=== PATIENT | female | born 1985 | race Caucasian/White ===

== ENCOUNTER 2017-02-06 12:41 | Emergency (ER) | payer MEDICAID ==
[~2017-02-06] VITALS: Ht 170.2 cm; Wt 54.1 kg
[~2017-02-06 12:41] MED LIST: ALBUTEROL-200 PUFFS/ IH; AMOXICILLIN875 MG PO; AUGMENTIN 875-1 EACH PO; CLINDAMYCIN HC300 MG PO; DARVOCET-N 1001 EACH PO; FERROUS SULFAT325 M2 PO; FIORICET 325 MG1 TAB PO; FLAGYL500 M1 PO; IBUPROFEN800 MG PO; IRON TABLETS325 MG PO; MOTRIN 400MG.400 MG PO; MOTRIN600 MG PO; MULTI VITAMINS1 TAB PO; NICOTINE T21 MG/24 H TD; ULTRAM50 MG PO
--- OUTSIDE RECORDS SUMMARY | 2017-02-06 12:48 | External Medical Summary Rpt | CCD ---
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 Role Phone [facility] Unavailable Unavailable MEDICAL GROUP, [facility] Unavailable Unavailable ANESTHESIA, [facility] ANESTHESIA [facility] & Unavailable Unavailable DUBILIER, [facility] Unavailable Unavailable ASSOCIATES, [facility] Unavailable Unavailable INC, [facility] Unavailable Unavailable HOSPITAL P, [facility], Unavailable Unavailable [facility], Unavailable Unavailable [facility] Unavailable Unavailable [facility], [facility] Jv Matute MD, Unavailable Unavailable Jv Matute MD [facility], Unavailable Unavailable [facility] [place] [facility], [facility] Unavailable Unavailable EQUIPME, [facility] Purpose Continuity of Care Document - 12-04-2011 through 2016 Problems Code Diagnosis DOS Provider Status J00 ACUTE 10-13-2016 [facility] NASOPHARYNG PHYSICIAN ITIS COMMON GROUP COLD K8010 CALCULUS GB 09-22-2016 [facility] W/CHRONIC MICHEAL & CHOLECYST DUBILIER W/O OBSTRUCTION K8050 CALCULUS BD 09-22-2016 [facility] W/O [facility] CHOLANGITIS ANESTHESIA /CHOLECYST W/O OBST K8510 BILIARY 09-22-2016 [facility] ACUTE [facility] PANCREATITI ANESTHESIA S W/O NECROSIS INFECT K8590 ACUTE 09-22-2016 [facility] PANCREATITI HEALTH S WO MEDICAL NECROSIS/IN GROUP FECTION UNSPEC K8020 CALCULUS GB 09-21-2016 [facility] CHOLECYSTIT ASSOC[facility]ATES IS W/O OBSTRUCTION R1013 EPIGASTRIC 09-21-2016 [facility] Z720 TOBACCO USE 09-21-2016 [facility] K8051 CALCULUS BD 09-20-2016 [facility] W/O [facility] P OR CHOLECYST W/OBST K8070 CALCULUS GB 09-20-2016 [facility] & BD W/O MEDICAL CHOLECYST IMAGING ASS W/O OBSTRUCTION K831 OBSTRUCTION 09-20-2016 [place] OF BILE PHYSICIANS, DUCT [facility] R079 CHEST PAIN 09-20-2016 [facility] UNSPECIFIED [facility] IM[facility]ING ASS R109 UNSPECIFIED 09-20-2016 [facility] ABDOMINAL [facility]ICAL PAIN [facility] R748 ABNORMAL 09-20-2016 [facility] LEVELS OF MEDICAL OTHER SERUM IMAGING ASS ENZYMES R7989 OTHER SPEC 09-20-2016 [place] ABNORMAL PHYSICIANS, FINDINGS [facility] BLOOD CHEMISTRY R945 ABNORMAL 09-20-2016 [place] RESULTS OF PHYSICIANS, LIVER [facility] FUNCTION STUDIES Z0189 ENCOUNTER 08-10-2016 [facility] SPECIFIED SPECIAL EXAMINATION S Z302 ENCOUNTER 08-10-2016 [facility] FOR PHYSICIANS STERILIZATI GROUP ON Z3009 ENCOUNTER 08-08-2016 [facility] OT GENERAL PHYSICIANS GROUP CISTERN ROOM WORKING SUPERVISOR&ADV ICE CONTRACEPT Z9851 TUBAL 08-08-2016 [facility] LIGATION PHYSICIANS STATUS GROUP K029 DENTAL 07-02-2016 [place] CARIES PHYSICIANS, UNSPECIFIED [facility] I03822 CELLULITIS 07-02-2016 [facility] OF [facility]ACE [facility] Z3040 ENCOUNTER 06-28-2016 [facility] SURVEILLANC GROUP E CONTRACEPTI VES UNS V84161 ENCOUNTER 06-28-2016 [facility] REMOVAL PHYSICIANS INTRAUTERIN GROUP E CONTRACEPT DEVICE K0500 ACUTE 06-27-2016 [facility] PLAQUE INC INDUCED R102 PELVIC AND 05-23-2016 [facility] PERINEAL PHYSICIANS PAIN GROUP Z7251 HIGH RISK 05-23-2016 [facility] HETEROSEXUA PHYSICIANS L BEHAVIOR GROUP H66568 ENCOUNTER 04-17-2016 [facility] INSERTION PHYSICIANS INTRAUTERIN GROUP E CONTRACEPT DEVC Z392 ENCOUNTER 01-11-2016 [facility] FOR [facility]OUTINE LLC FOLLOW-UP Z391 ENCNTR FOR 12-22-2015 [facility] MEDICAL LACTATING EQUIPME MOTHER [id number] L & D COMP 12-04-2015 [facility] CORD AROUND [facility] NECK W/O INC COMPRS NA/UNS O80 ENCOUNTER 12-04-2015 [facility] FOR PHYSICIANS FULL-TERM GROUP UNCOMPLICAT ED DELIVERY Z370 SINGLE LIVE 12-04-2015 [facility] PHYSICIANS GROUP Z3A39 39 WEEKS 12-04-2015 [facility] INC [id number] OLIGOHYDRAM 11-29-2015 [facility] NIOS THIRD PHYSICIANS TRIMESTER GROUP NA/UNS C61992 DRUG USE 11-29-2015 [facility] COMPLICATIN PHYSICIANS G GROUP UNS TRIMESTER D97001 DRUG USE 11-23-2015 [facility] COMPLICATIN PHYSICIANS G GROUP THIRD TRIMESTER Z3480 ENC 11-23-2015 [facility] SUPERVISION PHYSICIANS OT NORMAL GROUP PREG UNS TRIMESTER P29600 OTHER SPEC 11-21-2015 [facility] RELATED [facility] COND 3RD TRIMESTER Z3A37 37 WEEKS 11-21-2015 [facility] OF INC Z3493 ENC 11-15-2015 [facility]ICAL NORMAL IMAGING ASS UNS 3 TRIMESTER Z3A36 36 WEEKS 11-15-2015 [facility] OF IMAGING ASS O4703 FALSE LABOR 10-31-2015 [facility] BEFORE [facility] CMPLETE INC WEEKS GEST 3RD TRI O6003 10-31-2015 [facility] LABOR PHYSICIANS WITHOUT GROUP DELIVERY THIRD TRIMESTER Z3A34 34 WEEKS 10-31-2015 [facility] INC C10824 ABNORMAL 10-07-2015 [facility] GLUCOSE PHYSICIANS COMPLICATIN GROUP G Z3492 ENC 09-15-2015 [facility]PER[facility]ION MEDICAL NORMAL IMAGING ASS UNS 2 TRIMESTER Z3A26 26 WEEKS 09-15-2015 [facility] OF IMAGING ASS Z113 ENCOUNTER 08-29-2015 [facility] SCREEN [facility] INFECTIONS SEXL MODE TRANSMISSN Z3201 ENCOUNTER 08-29-2015 [facility] GROUP TEST RESULT POSITIVE Z3481 ENC 08-29-2015 [facility] SUPERVISION LLC OT NORMAL 1 TRIMESTER 305.1 305.1 09-17-2012 [place] TOBACCO USE [facility] 648.93 648.93 OT 09-17-2012 [facility] V70.5 V70.5 09-17-2012 [facility] EXAM-GROUP [facility] SURVEY F19.20 Other psychoactiv e substance dependence, uncomplicat ed F41.9 ANXIETY DISORDER, UNSPECIFIED K02.9 DENTAL CARIES, UNSPECIFIED K80.50 Calculus of bile duct without cholangitis or cholecystit is without obstruction K80.70 Calculus of gallbladder and bile duct without cholecystit is without obstruction K83.1 OBSTRUCTION OF BILE DUCT K85.10 Biliary acute pancreatiti s without necrosis or infection K85.90 Acute pancreatiti s without necrosis or infection, unspecified R74.8 ABNORMAL LEVELS OF OTHER SERUM ENZYMES R79.89 OTHER SPECIFIED ABNORMAL FINDINGS OF BLOOD CHEMISTRY Allergies, Adverse Reactions, Alerts Type Drug Allergy Adverse Reaction to Substance Substance Reaction Severity Codeine Unknown Unknown Guaifenesin Unknown Unknown Medications Na ND Rx Da Fi Fi Am Da Di Ph RX Ph St me C No te ll ll ou ys ag ar # ys at rm s nt no ma ic us Or Da si cy ia de te s n re d HY 00 06 07 [address] 40 -0 -0 .0 00 L- ti OC 60 9- 7- 00 02 MA ve OD 12 20 20 24 RT ON 40 17 17 06 -A 1 59 PH CE AR TA MA WV CY NO PH #5 91 7. 5- 32 5 AM 00 05 06 20 10 00 WA Ac OX 78 -0 -0 .0 00 L- ti -C 11 1- 2- 00 07 MA ve LA 85 20 20 48 RT V 22 17 17 53 87 0 61 PH 5- AR 12 MA 5 CY MG #5 TA 91 BL ET CL 63 05 06 40 10 00 WA Ac IN 30 -0 -0 .0 00 L- ti DA 40 1- 2- 00 07 MA ve MY 69 20 20 48 RT CI 30 17 17 53 N 1 60 PH HC AR L MA 30 CY 0 MG #5 91 CA PS UL E HY 00 05 06 6. [address] 40 -0 -0 00 00 L- ti OC 60 8- 2- 0 02 MA ve OD 12 20 20 24 RT ON 30 17 17 02 -A 1 36 PH CE AR TA MA WV CY NO PH #5 EN 91 5- 32 5 IB 68 05 06 6. 3 00 WA Ac UP 64 -0 -0 00 00 L- ti RO 50 8- 2- 0 07 MA ve FE 53 20 20 48 RT N 05 17 17 67 60 9 81 PH 0 AR MG MA CY TA BL #5 ET 91 ME 59 04 05 1. [address] 76 -2 -1 00 00 IN ti OX 24 7- 9- 0 00 IC ve YP 53 20 20 42 RO 70 17 17 94 PH GE [address] MA ER CY ON E 15 0 MG /M L AM 00 04 05 20 10 00 WA Ac OX 14 -2 -1 .0 00 L- ti IC 39 6- 9- 00 07 MA ve IL 95 20 20 48 RT LI 10 17 17 46 N 1 15 PH 87 AR 5 MA MG CY TA #5 BL 91 ET IB 68 04 05 20 5 00 WA Ac UP 64 -2 -1 .0 00 L- ti RO 50 6- 9- 00 07 MA ve FE 53 20 20 48 RT N 15 17 17 46 80 4 17 PH 0 AR MG MA CY TA BL #5 ET 91 NA 65 02 03 60 30 00 WA Ac PA 16 -1 -1 .0 00 L- ti OX 20 4- 0- 00 07 MA ve EN 19 20 20 47 RT 01 17 17 06 50 1 24 PH 0 AR MG MA CY TA BL #5 ET 91 ON 57 01 02 12 3 00 WA Ac DA 23 -0 -0 .0 00 L- ti NS 70 5- 3- 00 07 MA ve ET 07 20 20 46 RT RO 71 17 17 29 N 0 31 PH OD AR T MA 4 CY MG #5 TA 91 BL ET LO 00 01 02 30 30 00 WA Ac RA 78 -0 -0 .0 00 L- ti TA 15 5- 3- 00 08 MA ve DI 07 20 20 83 RT NE 70 17 17 75 1 82 PH 10 AR MA MG CY TA #5 BL 91 ET PI 11 08 0 No TO 11 -3 CI 11 0- Lo N 11 20 ng 30 13 13 er 3 UN Ac IT ti S/ ve LR 50 0M L IV LA [address] 40 -3 AT 97 0- Lo ED 95 20 ng 30 13 er RI 9 NG Ac ER ti S ve IN JE CT IO N W[place] 59 08 0 No SO 76 -3 PA 25 0- Lo OS 00 20 ng TO 80 13 er L 1 20 Ac 0 ti MC ve G TA BL ET MA 00 08 2 No PA 90 -3 P 41 0- Lo 32 98 20 ng 5 26 13 er MG 1 Ac TA ti BL ve ET Ib 62 08 2 No up 58 -3 ro 40 0- Lo fe 74 20 ng n 60 13 er 40 1 0M Ac G ti Ta ve bl et SE 67 08 2 No NO 61 -3 KO 80 0- Lo T- 31 20 ng S 00 13 er TA 1 BL Ac ET ti ve NI 00 08 0 No CO 06 -3 TI 75 0- Lo NE 12 20 ng 61 13 er 21 4 Ac MG ti /2 ve 4H R PA TC H AM 00 08 1 No PI 78 -3 CI 13 0- Lo LL 41 20 ng IN 39 13 er 2 2 Ac GM ti ve A- V AL SO 00 08 1 No DI 40 -3 UM 97 0- Lo 10 20 ng CH 16 13 er LO 7 RI Ac DE ti ve 0. 9% SO LN Vital Signs 10-31-2012 15:58 Name Value Interpretat Reference Comment ion Range Weight 139 [lb_av] Measured Weight 63.050 kg Measured 09-17-2012 00:49 Name Value Interpretat Reference Comment ion Range BP 76 mm[Hg] Diastolic BP Systolic 120 mm[Hg] Heart 82 /min Rate/Pulse O2% 97 % Respiratory 20 /min Rate Results Labs Lab Lab Date Result Refere Interp Status Commen Order Detail nces retati t Range on LPL SerPl-cCnc (09-22-2016 05:30) Lipase 104 U/L 6-51 complet SerPl-c 017 ed Cnc 05:30 Comp Metab 1998 Pnl SerPl (09-22-2016 05:30) Comment: National Kidney Foundation Guidelines Comment: Comment: Stage Description GFR Comment: 1 Normal or High 90+ Comment: 2 Mild decrease 60-89 Comment: 3 Moderate decrease 30-59 Comment: 4 Severe decrease 15-29 Comment: 5 Kidney failure <15 BUN 6 mg/dL 9-23 complet Bld-mCn 017 ed c 05:30 Anion 5.0 3.0-11. complet Gap3 017 mmol/L 0 ed SerPl-s 05:30 Cnc BUN/Cre 12.0 7.0-25. complet at 017 0 ed SerPl 05:30 Albumin 1.6 1.5-2.5 complet /Glob 017 g/dL ed SerPl 05:30 Globuli 2.0 complet n Ur 017 gm/dL ed Elph-mC 05:30 nc GFR/BSA 146 >60 complet .pred 017 mL/min/ ed SerPl 05:30 1.73 MDRD-Ar VRat Bilirub 07-22-2 0.4 0.3-1.2 complet 017 mg/dL ed SerPl-m 05:30 Cnc ALP 65 U/L 25-100 complet SerPl-c 017 ed Cnc 05:30 AST 35 U/L 0-33 complet SerPl-c 017 ed Cnc 05:30 ALT 94 U/L 7-40 complet SerPl w 017 ed 05:30 P-5'-P- cCnc Albumin 3.10 3.20-4. complet 017 g/dL 80 ed SerPl-m 05:30 Cnc Prot 5.1 5.7-8.2 complet SerPl-m 017 g/dL ed Cnc 05:30 Calcium 7.8 8.7-10. complet 017 mg/dL 4 ed XXX-sCn 05:30 c CO2 20.0 20.0-31 complet SerPl-s 017 mmol/L .0 ed Cnc 05:30 Chlorid 115 99-109 complet e 017 mmol/L ed SerPl-s 05:30 Cnc Potassi 3.8 3.5-5.5 complet um 017 mmol/L ed Bld-sCn 05:30 c Sodium 140 132-146 complet Bld-sCn 017 mmol/L ed c 05:30 Creat 0.50 0.60-1. complet Bld-mCn 017 mg/dL 30 ed c 05:30 Glucose 92 70-100 complet 017 mg/dL ed Bld-mCn 05:30 c CBC (hemogram) Bld Auto (09-22-2016 05:30) Platele 142 150-450 complet t # Bld 017 10*3/mm ed Auto 05:30 3 PMV Bld 10.5 fL 6.0-12. complet Auto 017 0 ed 05:30 RDW RBC 39.6 fl 37.0-54 complet Auto 017 .0 ed 05:30 RDW RBC 11.9 % 11.3-14 complet 017 .5 ed Auto-Rt 05:30 o MCHC 07-22-2 35.6 32.0-36 complet RBC 017 g/dL .0 ed Auto-mC 05:30 nc MCH RBC 09-22-2 32.2 pg 27.0-31 complet Qn 017 .0 ed Auto 05:30 MCV RBC 09-22-2 90.5 fL 80.0-99 complet Auto 017 .0 ed 05:30 Hct VFr 09-22-2 34.3 % 34.5-44 complet Bld 017 .0 ed Auto 05:30 Hgb 09-22-2 12.2 11.5-15 complet Bld-mCn 017 g/dL .5 ed c 05:30 RBC # 22-2 3.79 3.89-5. complet Bld 017 10*6/mm 14 ed Auto 05:30 3 WBC 09-22-2 4.37 3.50-10 complet nRBC 017 10*3/mm .80 ed cor # 05:30 3 Bld Hgb A1c Bld (09-21-2016 08:17) Comment: The [place] [employer] recommends maintenance of Hemoglobin A1C at 7.0% or lower. Goals for Hemoglobin A1C reduction may need to be modified if hypoglycemia is a problem. Hgb A1c 4.70 % 4.80-5. complet MFr 017 60 ed Bld 08:17 HCG Preg Ur Ql (09-21-2016 01:13) B-HCG [id number] Negativ complet Preg Ur 017 09 e ed Ql 01:13 Negativ e SCT Drugs Ur Scn (09-21-2016 01:13) Comment: Cutoff For Drugs Screened: Comment: Comment: Amphetamines 500 ng/ml Comment: Barbiturates 200 ng/ml Comment: Benzodiazepines 150 ng/ml Comment: Cocaine 150 ng/ml Comment: Methadone 200 ng/ml Comment: Opiates 100 ng/ml Comment: Phencyclidine 25 ng/ml Comment: THC 50 ng/ml Comment: Methamphetamine 500 ng/ml Comment: Tricyclic Antidepressants 300 ng/ml Comment: Oxycodone 100 ng/ml Comment: Propoxyphene 300 ng/ml Comment: Buprenorphine 10 ng/ml Comment: Comment: The normal value for all drugs tested is negative. This report includes unconfirmed screening results, with the cutoff values listed, to be used for medical treatment purposes only. Unconfirmed results must not be used for non-medical purposes such Bupreno 07-21-2 [id number] Negativ complet rphine 017 09 e ed SerPl-m 01:13 Negativ Cnc e SCT Propoxy 9207493 Negativ complet ph Ur 017 09 e ed Ql 01:13 Negativ e SCT Oxycodo [id number] Negativ complet ne Ur 017 09 e ed Ql Scn 01:13 Negativ e SCT Barbitu 2214009 Negativ complet rates 017 09 e ed Ur Ql 01:13 Negativ Scn e SCT Methado 3869682 Negativ complet ne Ur 017 09 e ed Ql Scn 01:13 Negativ e SCT Tricycl 9894930 Negativ complet ics Ur 017 09 e ed Ql Scn 01:13 Negativ e SCT Benzodi 4720161 Negativ complet az Ur 017 09 e ed Ql Scn 01:13 Negativ e SCT Amphet+ 7755556 Negativ complet Methamp 017 09 e ed het Ur 01:13 Negativ Ql e SCT Opiates 5678640 Negativ complet Ur Ql 017 09 e ed 01:13 Negativ e SCT Ampheta 7435863 Negativ complet mines 017 09 e ed Ur Ql 01:13 Negativ e SCT Cocaine 3309644 Negativ complet Ur Ql 017 09 e ed 01:13 Negativ e SCT PCP Ur 1033008 Negativ complet Ql Scn 017 09 e ed 01:13 Negativ e SCT Cannabi 0236070 Negativ complet noids 017 09 e ed SerPl 01:13 Negativ Ql e SCT UA Microscopic Pnl # Ur Auto (09-21-2016 01:13) Ref lab Automat complet test 017 ed ed method 01:13 Microsc opy Hyaline 0-6 0-6 complet Casts 017 /LPF ed Ur Ql 01:13 Auto Squamou 3-6 None complet s 017 /HPF Seen, ed #/area 01:13 0-2 UrnS HPF Bacteri 0541814 None complet a Ur Ql 017 00 Not Seen, ed Auto 01:13 detecte Trace d SCT /HPF WBC Ur 09-21- 3-5 None complet Ql Auto 017 /HPF Seen ed 01:13 RBC # 09-21- 0-2 None complet Ur 017 /HPF Seen, ed 01:13 0-2 UA Dipstick Pnl Ur (09-21-2016 01:13) Urobili 09-21-2 1.0 0.2 - complet nogen 017 E.U./dL 1.0 ed Ur Ql 01:13 E.U./dL Strip Nitrite 4437337 Negativ complet Ur Ql 017 09 e ed Strip 01:13 Negativ e SCT Leukocy 8542242 Negativ complet te 017 09 e ed esteras 01:13 Negativ e Ur Ql e SCT Strip.a uto Prot Ur 30 Negativ complet Ql 017 mg/dL e ed Strip 01:13 (1+) Hgb Ur 3693700 Negativ complet Ql 017 09 e ed Strip.a 01:13 Negativ uto e SCT Bilirub 3483250 Negativ complet Ur Ql 017 09 e ed Strip 01:13 Negativ e SCT Ketones 4237341 Negativ complet Ur Ql 017 06 e ed Strip 01:13 Trace SCT Glucose 2926255 Negativ complet Ur 017 09 e ed Strip-m 01:13 Negativ Cnc e SCT Sp Gr 1.055 1.001-1 complet Ur 017 .030 ed Strip 01:13 pH Ur 8.0 5.0-8.0 complet Strip.a 017 ed uto 01:13 Clarity 3942930 Clear complet Ur 017 01 ed 01:13 Clear SCT Color Dark Yellow, complet Ur 017 Yellow Straw ed 01:13 Troponin I [facility] (09-21-2016 00:06) Comment: Ultra Troponin I Reference Range: Comment: Comment: <=0.039 ng/mL: Negative Comment: 0.04-0.779 ng/mL: Indeterminate Range. Clinical correlation required. Comment: >=0.78 ng/mL: Consistent with myocardial injury. Clinical correlation required. Troponi < 0.006 <=0.039 complet n I 017 ng/mL ed SerPl-m 00:06 [facility] Comp Metab 1998 Pnl SerPl (09-21-2016 00:06) Comment: National Kidney Foundation Guidelines Comment: Comment: Stage Description GFR Comment: 1 Normal or High 90+ Comment: 2 Mild decrease 60-89 Comment: 3 Moderate decrease 30-59 Comment: 4 Severe decrease 15-29 Comment: 5 Kidney failure <15 Anion 8.0 3.0-11. complet Gap3 017 mmol/L 0 ed SerPl-s 00:06 Cnc BUN/Cre 13.3 7.0-25. complet at 017 0 ed SerPl 00:06 Albumin 1.5 1.5-2.5 complet /Glob 017 g/dL ed SerPl 00:06 Globuli 2.4 complet n Ur 017 gm/dL ed Elph-mC 00:06 wi GFR/BSA 118 >60 complet .pred 017 mL/min/ ed SerPl 00:06 1.73 MDRD-Ar VRat Bilirub 1.0 0.3-1.2 complet 017 mg/dL ed SerPl-m 00:06 Cnc ALP 90 U/L 25-100 complet SerPl-c 017 ed Cnc 00:06 AST 200 U/L 0-33 complet SerPl-c 017 ed Cnc 00:06 ALT 204 U/L 7-40 complet SerPl w 017 ed 00:06 P-5'-P- cCnc Albumin 3.70 3.20-4. complet 017 g/dL 80 ed SerPl-m 00:06 Cnc Prot 6.1 5.7-8.2 complet SerPl-m 017 g/dL ed Cnc 00:06 Calcium 8.4 8.7-10. complet 017 mg/dL 4 ed XXX-sCn 00:06 c CO2 21.0 20.0-31 complet SerPl-s 017 mmol/L .0 ed Cnc 00:06 Chlorid 112 99-109 complet e 017 mmol/L ed SerPl-s 00:06 Cnc Potassi 3.7 3.5-5.5 complet um 017 mmol/L ed Bld-sCn 00:06 c Sodium 141 132-146 complet Bld-sCn 017 mmol/L ed c 00:06 Creat 0.60 0.60-1. complet Bld-mCn 017 mg/dL 30 ed c 00:06 BUN 8 mg/dL 9-23 complet Bld-mCn 017 ed c 00:06 Glucose 91 70-100 complet 017 mg/dL ed Bld-mCn 00:06 c Mg Ionized SerPl-mCnc (09-21-2016 00:06) Magnesi 2.0 1.3-2.7 complet um 017 mg/dL ed SerPl-m 00:06 Cnc Lactate SerPl-sCnc (09-21-2016 00:06) D-Lacta 0.4 0.5-2.0 complet te 017 mmol/L ed SerPl-s 00:06 Cnc Comment: Falsely depressed results may occur on samples drawn from patients receiving N-Acetylcysteine (NAC) or Metamizole. aPTT PPP (09-21-2016 00:06) Comment: PTT = The equivalent PTT values for the therapeutic range of heparin levels at 0.3 to 0.5 U/ml are 45 to 60 seconds. aPTT 27.6 24.0-31 complet PPP 017 seconds .0 ed 00:06 Prothrombin time (09-21-2016 00:06) Comment: Therapeutic Ranges for INR:2.0-3.0 (PT 20-30) Comment: 2.5-3.5 (PT 25-34) INR PPP 1.09 complet 017 ed 00:06 Prothro 11.9 9.6-11. complet mbin 017 Seconds 5 ed time 00:06 CBC W Diff pnl,unspecified Bld (09-21-2016 00:06) Imm 09-21- 0.01 0.00-0. complet Granulo 017 10*3/mm 03 ed cytes # 00:06 3 Bld Basophi 07-21-2 0.02 0.00-0. complet ls # 017 10*3/mm 20 ed Bld 00:06 3 Auto Eosinop 21-2 0.31 0.00-0. complet hil # 017 10*3/mm 30 ed Bld 00:06 3 Auto Monocyt 21-2 0.33 0.00-1. complet es # 017 10*3/mm 00 ed Bld 00:06 3 Auto Lymphoc 21-2 1.97 0.60-4. complet ytes # 017 10*3/mm 80 ed Bld 00:06 3 Auto Neutrop 09-21-2 2.77 1.50-8. complet hils # 017 10*3/mm 30 ed Bld 00:06 3 Auto Imm 09-21-2 0.2 % 0.0-0.6 complet Granulo 017 ed cytes/l 00:06 euk NFr Bld Basophi 09-21-2 0.4 % 0.0-1.0 complet ls/leuk 017 ed NFr 00:06 Bld Auto Eosinop 09-21-2 5.7 % 0.0-3.0 complet hil/percy 017 ed k NFr 00:06 Bld Auto Monocyt 09-21-2 6.1 % 0.0-12. complet es/leuk 017 0 ed NFr 00:06 Bld Auto Lymphoc 09-21-2 36.4 % 24.0-44 complet ytes/le 017 .0 ed uk NFr 00:06 Bld Auto Neutrop 09-21-2 51.2 % 41.0-71 complet hils/le 017 .0 ed uk NFr 00:06 Bld Auto Platele 09-21-2 142 150-450 complet t # Bld 017 10*3/mm ed Auto 00:06 3 PMV Bld 09-21-2 9.7 fL 6.0-12. complet Auto 017 0 ed 00:06 RDW RBC 09-21-2 40.1 fl 37.0-54 complet Auto 017 .0 ed 00:06 RDW RBC 09-21-2 12.2 % 11.3-14 complet 017 .5 ed Auto-Rt 00:06 o MCHC 09-21-2 35.5 32.0-36 complet RBC 017 g/dL .0 ed Auto-mC 00:06 nc MCH RBC 32.1 pg 27.0-31 complet Qn 017 .0 ed Auto 00:06 MCV RBC 90.4 fL 80.0-99 complet Auto 017 .0 ed 00:06 Hct VFr 36.6 % 34.5-44 complet Bld 017 .0 ed Auto 00:06 Hgb 13.0 11.5-15 complet Bld-mCn 017 g/dL .5 ed c 00:06 RBC # 09-21-2 4.05 3.89-5. complet Bld 017 10*6/mm 14 ed Auto 00:06 3 WBC 5.41 3.50-10 complet nRBC 017 10*3/mm .80 ed cor # 00:06 3 Bld Lipid pnl with direct LDL SerPl (09-21-2016 00:06) Comment: Cholesterol Reference Ranges: Comment: Desirable < 200 mg/dL Comment: Borderline 200-239 mg/dL Comment: High Risk > 239 mg/dL Comment: Comment: Triglyceride Reference Ranges: Comment: Normal < 150 mg/dL Comment: Borderline 150-199 mg/dL Comment: High 200-499 mg/dL Comment: Very High > 499 mg/dL Comment: Comment: HDL Reference Ranges: Comment: Low < 40 mg/dL Comment: High > 59 mg/dL Comment: Comment: LDL Reference Ranges: Comment: Optimal < 100 mg/dL Comment: Near Optimal 100-129 mg/dL Comment: Borderline 130-159 mg/dL Comment: High 160-189 mg/dL Comment: Very High > 189 mg/dL Articho 64 0-130 complet ke IgE 017 mg/dL ed Qn 00:06 HDLc 38 40-60 complet SerPl-m 017 mg/dL ed Cnc 00:06 Trigl 37 0-150 complet SerPl-m 017 mg/dL ed Cnc 00:06 Cholest 109 0-200 complet 017 mg/dL ed SerPl-m 00:06 Cnc LPL SerPl-cCnc (09-21-2016 00:06) Lipase > 3500 6-51 complet SerPl-c 017 U/L ed Cnc 00:06 Drugs identified in Urine by Screen method (09-20-2016 17:00) Ampheta NEGATIV <1000 complet mine 017 E ed [Presen 17:00 ce] in Urine by Screen method 11-Hydr NEGATIV <50 complet oxy 017 E ed delta-9 17:00 tetrahy drocann abinol [Presen ce] in Unspeci fied specime n pH BldCo (10-31-2012 18:04) pH 10-31- 7.27 7.35-7. complet BldCo 013 UNK 45 ed 18:04 CBC with AUTO DIFF (10-31-2012 14:30) WBC # 30-2 12.7 4.8-10. complet Bld 013 K/MM3 8 ed Auto 14:30 RBC # 10-31-2 4.36 4.2-5.4 complet Bld 013 M/mm3 ed Auto 14:30 Hgb 10-31-2 13.6 12.2-16 complet Bld-mCn 013 g/dL .2 ed c 14:30 Hct Fr 2 38.8 % 37.0-47 complet Bld 013 .0 ed 14:30 MCV RBC 10-31-2 89.0 fl 82.2-97 complet 013 .8 ed 14:30 MCH RBC 10-31-2 31.3 pg 27-31.2 complet Qn 013 ed Auto 14:30 MEAN 10-31-2 35.2 31.8-35 complet CORPUSC 013 g/dl .4 ed ULAR 14:30 HGB CONC RDW RBC 10-31-2 13.8 % 11.5-17 complet Auto 013 .5 ed 14:30 Platele 30-2 209 142-424 complet t Bld 013 K/mm3 ed Ql 14:30 Manual MEAN 30-2 8.8 fl 7.4-10. complet PLATELE 013 4 ed T 14:30 VOLUME Granulo 30-2 76.1 % 37.0-80 complet cytes 013 .0 ed Fr Bld 14:30 Auto LYMPH % 30-2 18.1 % 10-50.0 complet 013 ed 14:30 Monocyt 30-2 3.9 % 1.7-9.3 complet es Fr 013 ed Bld 14:30 Auto Eosinop 30-2 1.4 % 0.1-12. complet hil Fr 013 0 ed Bld 14:30 Auto Basophi 0830-2 0.4 % 0.1-2.0 complet ls Fr 013 ed Bld 14:30 Auto Granulo 30-2 9.7 1.8-7.8 complet cytes # 013 K/mm3 ed Bld 14:30 Auto Lymphoc 30-2 2.3 0.7-4.5 complet ytes Fr 013 K/mm3 ed Bld 14:30 Auto Monocyt 30-2 0.5 0.1-1.0 complet es # 013 K/mm3 ed Bld 14:30 Auto Eosinop 30-2 0.2 0.0-0.4 complet hil # 013 K/mm3 ed Bld 14:30 Auto Basophi 30-2 0.0 0-0.2 complet ls # 013 K/MM3 ed Bld 14:30 Auto AMNISURE RUPTURE TEST (10-31-2012 14:15) AMNISUR POSITIV complet E 013 E- ed 14:15 RUPTURE RUPTURE D TEST URINALYSIS/COMPLETE (10-31-2012 14:00) URINE YELLOW YELLOW complet COLOR 013 ed 14:00 URINE SL CLEAR complet APPEARA 013 CLOUDY ed NCE 14:00 URINE NEGATIV NEG complet GLUCOSE 013 E ed - 14:00 DIPSTIC K URINE NEGATIV NEG complet BILIRUB 013 E ed IN - 14:00 DIPSTIC K URINE NEGATIV NEG complet KETONE 013 E mg/dL ed 14:00 URINE 2 1.020 1.005-1 complet SPECIFI 013 UNK .030 ed C 14:00 GRAVITY URINE 1+ NEG complet BLOOD 013 ed 14:00 URINE 7.5 UNK 5.0-8.5 complet PH 013 ed 14:00 URINE NEGATIV NEG complet PROTEIN 013 E mg/dL ed - 14:00 DIPSTIC K URINE 0.2 NEG complet UROBILI 013 E.U./dL ed NOGEN - 14:00 DIPSTIC K URINE NEGATIV NEG complet NITRATE 013 E ed - 14:00 DIPSTIC K URINE 1+ NEG complet LEUK 013 ed ESTERAS 14:00 E URINE 3-5 0 complet RBC 013 rbc/hpf ed 14:00 URINE 50-100 O complet WBC 013 wbc/hpf ed 14:00 URINE 10-20 0-5 complet SQUAMOU 013 #/hpf ed S CELLS 14:00 URINE 1+ O complet BACTERI 013 ed A 14:00 URINE 1+ OCC complet MUCUS 013 ed 14:00 Encounters Encounter Start End Date Code Location Performer Type Date [facility] - 7 [facility] MIGUELANGEL - 7 7 [facility] MIGUELANGEL - 7 7 [facility] MIGUELANGEL - 6 6 [facility] INPATIENT [facility] MIGUELANGEL [facility] 6 6 [facility] MIGUELANGEL - 6 6 [facility] MIGUELANGEL - 6 6 [facility] MIGUELANGEL - 6 6 [facility] MIGUELANGEL - 6 6 [facility] MIGUELANGEL [facility] 6 6 [facility] MIGUELANGEL - 6 6 [facility] IMP Miguelangel Phelps MD (IN) 3 13:59 3 13:00 [facility] Emergency RADHA Matute MD (ER) 3 23:12 3 23:14 [facility] Emergency RADHA Matute MD (ER) 3 00:30 3 00:50 [facility]
--- OUTSIDE RECORDS SUMMARY | 2017-02-06 12:48 | External Medical Summary Rpt | CCD ---
Author Author , IAM VITALE Address Unknown Phone [email or web address] Care Team Providers Care Eye Specialist Name Role Phone [facility] Unavailable Unavailable MEDICAL GROUP, [facility] Unavailable Unavailable ANESTHESIA, [facility] ANESTHESIA [facility] & Unavailable Unavailable DUBILIER, [facility] Unavailable Unavailable ASSOCIATES, [facility] Unavailable Unavailable INC, [facility] Unavailable Unavailable HOSPITAL P, [facility], Unavailable Unavailable [facility], Unavailable Unavailable [facility] Unavailable Unavailable [facility], [facility] Jv Matute MD, Unavailable Unavailable Jv Matute MD [facility] Unavailable Unavailable [facility], Unavailable Unavailable [facility], [facility], [facility] Unavailable Unavailable EQUIPME, [facility] Purpose Continuity of Care Document - 12-04-2011 through 2016 Problems Code Diagnosis DOS Provider Status J00 ACUTE 10-13-2016 [facility] NASOPHARYNG PHYSICIAN ITIS COMMON GROUP COLD K8010 CALCULUS GB 09-22-2016 [facility] W/CHRONIC MICHEAL & CHOLECYST DUBILIER W/O OBSTRUCTION K8050 CALCULUS BD 09-22-2016 [facility] W/O [place] CHOLANGITIS ANESTHESIA /CHOLECYST W/O OBST K8510 BILIARY 09-22-2016 [facility] [place] PANCREATITI ANESTHESIA S W/O NECROSIS INFECT K8590 ACUTE 09-22-2016 [facility] PANCREATITI HEALTH S WO MEDICAL NECROSIS/IN GROUP FECTION UNSPEC K8020 CALCULUS GB 09-21-2016 [facility] CHOLECYSTIT ASSOCIATES IS W/O OBSTRUCTION R1013 EPIGASTRIC 09-21-2016 [facility] Z720 TOBACCO USE 09-21-2016 [facility] K8051 CALCULUS BD 09-20-2016 [place]ELANGEL W/O [facility] P OR CHOLECYST W/OBST K8070 CALCULUS GB 09-20-2016 [place] & BD W/O MEDICAL CHOLECYST IMAGING ASS W/O OBSTRUCTION K831 OBSTRUCTION 09-20-2016 [facility] OF BILE PHYSICIANS, DUCT [facility] R079 CHEST PAIN 09-20-2016 [place] [place] UNSPECIFIED MEDICAL IMAGING ASS R109 UNSPECIFIED 09-20-2016 [place] ABDOMINAL MEDICAL PAIN IMAGING ASS R748 ABNORMAL 09-20-2016 [place] LEVELS OF MEDICAL OTHER SERUM IMAGING ASS ENZYMES R7989 OTHER SPEC 09-20-2016 [facility] ABNORMAL PHYSICIANS, FINDINGS [facility] BLOOD CHEMISTRY R945 ABNORMAL 09-20-2016 [facility] RESULTS OF PHYSICIANS, LIVER [facility] FUNCTION STUDIES Z0189 ENCOUNTER 08-10-2016 [facility] SPECIFIED SPECIAL EXAMINATION S Z302 ENCOUNTER 08-10-2016 [facility] STERILIZATI GROUP ON Z3009 ENCOUNTER 08-08-2016 [facility] OT GENERAL PHYSICIANS GROUP CLINICAL NUTRITIONIST&ADV ICE CONTRACEPT Z9851 TUBAL 08-08-2016 [facility] LIGATION PHYSICIANS STATUS GROUP K029 DENTAL 07-02-2016 [facility] CARIES PHYSICIANS, UNSPECIFIED [facility] W97010 CELLULITIS 07-02-2016 [place] OF [facility]ACE [facility] Z3040 ENCOUNTER 06-28-2016 [facility] SURVEILLANC GROUP E CONTRACEPTI VES UNS D21288 ENCOUNTER 06-28-2016 [facility] REMOVAL PHYSICIANS INTRAUTERIN GROUP E CONTRACEPT DEVICE K0500 ACUTE 06-27-2016 [facility] PLAQUE INC INDUCED R102 PELVIC AND 05-23-2016 [facility] PERINEAL PHYSICIANS PAIN GROUP Z7251 HIGH RISK 05-23-2016 [facility] HETEROSEXUA PHYSICIANS L BEHAVIOR GROUP D47655 ENCOUNTER 04-17-2016 [facility] INSERTION PHYSICIANS INTRAUTERIN GROUP E CONTRACEPT DEVC Z392 ENCOUNTER 01-11-2016 [facility] FOR ROUTINE LLC FOLLOW-UP Z391 ENCNTR FOR 12-22-2015 [facility] MEDICAL LACTATING EQUIPME MOTHER [id number] L & D COMP 12-04-2015 [facility] NECK W/O INC COMPRS NA/UNS O80 ENCOUNTER 12-04-2015 [facility] FULL-TERM GROUP UNCOMPLICAT ED DELIVERY Z370 SINGLE LIVE 12-04-2015 [facility] PHYSICIANS GROUP Z3A39 39 WEEKS 12-04-2015 [facility] INC [id number] OLIGOHYDRAM 11-29-2015 [facility] NIOS THIRD PHYSICIANS TRIMESTER GROUP NA/UNS O01115 DRUG USE 11-29-2015 [facility] COMPLICATIN PHYSICIANS G GROUP UNS TRIMESTER O77576 DRUG USE 11-23-2015 [facility] COMPLICATIN PHYSICIANS G GROUP THIRD TRIMESTER Z3480 ENC 11-23-2015 [facility] SUPERVISION PHYSICIANS OT NORMAL GROUP PREG UNS TRIMESTER S83489 OTHER SPEC 11-21-2015 [facility] RELATED INC COND 3RD TRIMESTER Z3A37 37 WEEKS 11-21-2015 [facility] OF INC Z3493 ENC 11-15-2015 [facility] [place] [facility] MEDICAL NORMAL IMAGING ASS UNS 3 TRIMESTER Z3A36 36 WEEKS 11-15-2015 [facility] MEDICAL OF IMAGING ASS O4703 FALSE LABOR 10-31-2015 [facility] MEM H[facility] CMPLETE INC WEEKS GEST 3RD TRI O6003 10-31-2015 [facility] LABOR PHYSICIANS WITHOUT GROUP DELIVERY THIRD TRIMESTER Z3A34 34 WEEKS 10-31-2015 [facility] INC D32793 ABNORMAL 10-07-2015 [facility] GLUCOSE PHYSICIANS COMPLICATIN GROUP G Z3492 ENC 09-15-2015 [place] [facility] MEDICAL NORMAL IMAGING ASS UNS 2 TRIMESTER Z3A26 26 WEEKS 09-15-2015 [facility] MEDICAL OF IMAGING ASS Z113 ENCOUNTER 08-29-2015 [facility] SCREEN LLC INFECTIONS SEXL MODE TRANSMISSN Z3201 ENCOUNTER 08-29-2015 [facility] GROUP TEST RESULT POSITIVE Z3481 ENC 08-29-2015 [facility] SUPERVISION LLC OT NORMAL 1 TRIMESTER 305.1 305.1 09-17-2012 [facility] TOBACCO USE [facility] 648.93 648.93 OT 09-17-2012 [facility] V70.5 V70.5 09-17-2012 [facility] EXAM-GROUP [facility] SURVEY F19.20 Other psychoactiv e substance dependence, [...] 1 59 PH CE AR TA MA ID CY NO PH #5 91 7. 5- [...] 1 36 PH CE AR TA MA ID CY NO PH #5 EN 91 5- [...] 02 03 60 30 00 WA Ac OR 16 -1 -1 .0 00 L- ti [...] S ve IN JE CT IO N ID [id number] No SO 76 -3 OR 25 0- Lo OS 00 20 ng [...] Hgb A1c Bld (09-21-2016 08:17) Comment: The [place] [employer] recommends maintenance of Hemoglobin A1C at 7.0% or lower. Goals for Hemoglobin A1C reduction may need to be modified if hypoglycemia is a problem. Hgb A1c 4.70 % 4.80-5. complet MFr 017 60 ed Bld 08:17 HCG Preg Ur Ql (09-21-2016 01:13) B-HCG [id number] Negativ complet Preg Ur 017 09 e [...] used for non-medical purposes such Bupreno 07-21-2 5580179 Negativ complet rphine 017 09 e ed SerPl-m 01:13 Negativ Cnc e SCT Propoxy 5567661 Negativ complet ph Ur 017 09 e ed Ql 01:13 Negativ e SCT Oxycodo 3002229 Negativ complet ne Ur 017 09 e ed Ql Scn 01:13 Negativ e SCT Barbitu 7419703 Negativ complet rates 017 09 e ed Ur Ql 01:13 Negativ Scn e SCT Methado 6243926 Negativ complet ne Ur 017 09 e ed Ql Scn 01:13 Negativ e SCT Tricycl 1757804 Negativ complet ics Ur 017 09 e ed Ql Scn 01:13 Negativ e SCT Benzodi 3573380 Negativ complet az Ur 017 09 e ed Ql Scn 01:13 Negativ e SCT Amphet+ 7884553 Negativ complet Methamp 017 09 e ed het Ur 01:13 Negativ Ql e SCT Opiates 9490955 Negativ complet Ur Ql 017 09 e ed 01:13 Negativ e SCT Ampheta 2111796 Negativ complet mines 017 09 e ed Ur Ql 01:13 Negativ e SCT Cocaine 4717377 Negativ complet Ur Ql 017 09 e ed 01:13 Negativ e SCT PCP Ur 5059986 Negativ complet Ql Scn 017 09 e ed 01:13 Negativ e SCT Cannabi 7608348 Negativ complet noids 017 09 e ed SerPl 01:13 Negativ Ql e SCT UA Microscopic Pnl # Ur Auto (09-21-2016 01:13) Ref lab Automat complet test 017 ed ed method 01:13 Microsc opy Hyaline 0-6 0-6 complet Casts 017 /LPF ed Ur Ql 01:13 Auto Squamou 3-6 None complet s 017 /HPF Seen, ed #/area 01:13 0-2 UrnS HPF Bacteri 5204314 None complet a Ur Ql 017 00 [...] ed Ur Ql 01:13 E.U./dL Strip Nitrite 0815977 Negativ complet Ur Ql 017 09 e ed Strip 01:13 Negativ e SCT Leukocy 0571644 Negativ complet te 017 09 e ed esteras 01:13 Negativ e Ur Ql e SCT Strip.a uto Prot Ur 30 Negativ complet Ql 017 mg/dL e ed Strip 01:13 (1+) Hgb Ur 2600595 Negativ complet Ql 017 09 e ed Strip.a 01:13 Negativ uto e SCT Bilirub 7478083 Negativ complet Ur Ql 017 09 e ed Strip 01:13 Negativ e SCT Ketones 9861720 Negativ complet Ur Ql 017 06 e ed Strip 01:13 Trace SCT Glucose 5957054 Negativ complet Ur 017 09 e ed Strip-m 01:13 Negativ Cnc e SCT Sp Gr 1.055 1.001-1 complet Ur 017 .030 ed Strip 01:13 pH Ur 8.0 5.0-8.0 complet Strip.a 017 ed uto 01:13 Clarity 2195018 Clear complet Ur 017 01 ed 01:13 Clear SCT Color Dark Yellow, complet Ur 017 Yellow Straw ed 01:13 Troponin I [facility] (09-21-2016 00:06) Comment: Ultra Troponin I Reference Range: Comment: Comment: <=0.039 ng/mL: Negative Comment: 0.04-0.779 ng/mL: Indeterminate Range. Clinical correlation required. Comment: >=0.78 ng/mL: Consistent with myocardial injury. Clinical correlation required. Troponi < 0.006 <=0.039 complet n I 017 ng/mL ed SerPl-m 00:06 [facility] Comp Metab 1998 Pnl SerPl (09-21-2016 00:06) [...] n Ur 017 gm/dL ed Elph-mC 00:06 [place] GFR/BSA 118 >60 complet .pred 017 mL/min/ [...] End Date Code Location Performer Type Date [facility] MIGUELANGEL - 7 7 [facility] 7 7 [facility] MIGUELANGEL [facility] 7 7 [facility] MIG[facility]ANG[facility] - [address] [facility] [place] [facility] MIGUELANGEL [facility] 6 6 [facility] MIGUELANG[facility] - 6 6 [facility] MIG[facility] - 6 6 [facility] MIG[facility] - 6 6 [facility] MIGUELANGEL - 6 6 [facility] MIGUELANGEL [facility] 6 6 [facility] MIGUELANGEL - 6 6 [facility] IMP Miguelangel Phelps MD (IN) 3 13:59 3 13:00 [facility] Emergency RADHA Matute MD (ER) 3 23:12 3 23:14 [facility] Emergency RADHA Matute MD (ER) 3 00:30 3 00:50 [facility]
--- OUTSIDE RECORDS SUMMARY | 2017-02-06 12:50 | External Medical Summary Rpt | CCD ---
Demographics Preferred Language Estonian Marital Status Unknown Confucianist Affiliation Unknown Race Unknown Ethnic Group Unknown Author Author , IAM VITALE Address Unknown Phone Immunization No patient found.
--- OUTSIDE RECORDS SUMMARY | 2017-02-06 12:50 | External Medical Summary Rpt | CCD ---
Demographics Preferred Language Egyptian Marital Status Unknown Yazidi Affiliation Unknown Race Unknown Ethnic Group Unknown Author Author , IAM VITALE Address Unknown Phone Immunization No patient found.
--- OUTSIDE RECORDS SUMMARY | 2017-02-06 12:50 | External Medical Summary Rpt | CCD ---
Author Author , IAM VITALE Address Unknown Phone [email or web address] Care Team Providers Care Furniture Upholsterer Apprentice Name Role Phone [facility] Unavailable Unavailable MEDICAL GROUP, [facility] Unavailable Unavailable ANESTHESIA, [facility] ANESTHESIA [facility] & Unavailable Unavailable DUBILIER, [facility] Unavailable Unavailable ASSOCIATES, [facility] Unavailable Unavailable INC, [facility] Unavailable Unavailable HOSPITAL P, [facility], [facility]available Unavailable [facility], Unavailable Unavailable [facility] Unavailable Unavailable IMAGING [facility], [facility] Unavailable Unavailable [facility], Unavailable Unavailable PLLC, [facility] Unavailable Unavailable EQUIPME, [facility] Purpose Continuity of Care Document - 08-29-2015 through 2016 Problems Code Diagnosis DOS Provider Status J00 ACUTE 10-13-2016 [facility] NASOPHARYNG PHYSICIAN ITIS COMMON GROUP COLD K8010 CALCULUS GB 09-22-2016 [facility] W/CHRONIC MICHEAL & CHOLECYST DUBILIER W/O OBSTRUCTION K8050 CALCULUS BD 09-22-2016 [facility] W/O [place] CHOLANGITIS ANESTHESIA /CHOLECYST W/O OBST K8510 BILIARY 09-22-2016 [place] [facility] [place] PANCREATITI ANESTHESIA S W/O NECROSIS INFECT K8590 ACUTE 09-22-2016 [facility] PANCREATITI HEALTH S WO MEDICAL NECROSIS/IN GROUP FECTION UNSPEC K8020 CALCULUS GB 09-21-2016 [facility] CHOLECYSTIT ASSOCIATES IS W/O OBSTRUCTION R1013 EPIGASTRIC 09-21-2016 [facility] Z720 TOBACCO USE 09-21-2016 [facility] K8051 CALCULUS BD 09-20-2016 [facility] P OR CHOLECYST W/OBST K8070 CALCULUS GB 09-20-2016 [place] & BD W/O MEDICAL CHOLECYST IMAGING ASS W/O OBSTRUCTION K831 OBSTRUCTION 09-20-2016 [place] OF BILE PHYSICIANS, DUCT [facility] R079 CHEST PAIN 09-20-2016 [place] UNSPECIFIED [facility]ICAL IMAGING ASS R109 UNSPECIFIED 09-20-2016 [place] ABDOMINAL MEDICAL PAIN IMAGING ASS R748 ABNORMAL 09-20-2016 [place] LEVELS OF MEDICAL OTHER SERUM IMAGING ASS ENZYMES R7989 OTHER SPEC 09-20-2016 [facility] ABNORMAL PHYSICIANS, FINDINGS [facility] BLOOD CHEMISTRY R945 ABNORMAL 09-20-2016 [place] RESULTS OF PHYSICIANS, LIVER [facility] FUNCTION STUDIES Z0189 ENCOUNTER 08-10-2016 [facility] SPECIFIED SPECIAL EXAMINATION S Z302 ENCOUNTER 08-10-2016 [facility] STERILIZATI GROUP ON Z3009 ENCOUNTER 08-08-2016 [facility] OT GENERAL PHYSICIANS GROUP CHRISTIAN SCIENCE NURSE&ADV ICE CONTRACEPT Z9851 TUBAL 08-08-2016 [facility] LIGATION PHYSICIANS STATUS GROUP K029 DENTAL 07-02-2016 [facility]ANS, UNSPECIFIED [facility] Z09169 CELLULITIS 07-02-2016 [place] [facility] Z3040 ENCOUNTER 06-28-2016 [facility] SURVEILLANC GROUP E CONTRACEPTI VES UNS M32131 ENCOUNTER 06-28-2016 [facility] REMOVAL PHYSICIANS INTRAUTERIN GROUP E CONTRACEPT DEVICE K0500 ACUTE 06-27-2016 [facility] PLAQUE INC INDUCED R102 PELVIC AND 05-23-2016 [facility] PERINEAL PHYSICIANS PAIN GROUP Z7251 HIGH RISK 05-23-2016 [facility] HETEROSEXUA PHYSICIANS L BEHAVIOR GROUP C63143 ENCOUNTER 04-17-2016 [facility] INSERTION PHYSICIANS INTRAUTERIN GROUP E CONTRACEPT DEVC Z392 ENCOUNTER 01-11-2016 [facility] FOLLOW-UP Z391 ENCNTR FOR 12-22-2015 [facility] MEDICAL LACTATING EQUIPME MOTHER [id number] L & D COMP 12-04-2015 [facility] NECK W/O INC COMPRS NA/UNS O80 ENCOUNTER 12-04-2015 [facility] FULL-TERM GROUP UNCOMPLICAT ED DELIVERY Z370 SINGLE LIVE 12-04-2015 [facility] PHYSICIANS GROUP Z3A39 39 WEEKS 12-04-2015 [facility] OF INC Z9322Y6 OLIGOHYDRAM 11-29-2015 [facility] NIOS THIRD PHYSICIANS TRIMESTER GROUP NA/UNS F42943 DRUG USE 11-29-2015 [facility] COMPLICATIN PHYSICIANS G GROUP UNS TRIMESTER I70995 DRUG USE 11-23-2015 [facility] COMPLICATIN PHYSICIANS G GROUP THIRD TRIMESTER Z3480 ENC 11-23-2015 [facility] SUPERVISION PHYSICIANS OT NORMAL GROUP PREG UNS TRIMESTER L02382 OTHER SPEC 11-21-2015 [facility] RELATED INC COND 3RD TRIMESTER Z3A37 37 WEEKS 11-21-2015 [facility] OF INC Z3493 ENC 11-15-2015 [place] [facility] NORMAL IMAGING ASS UNS 3 TRIMESTER Z3A36 36 WEEKS 11-15-2015 [facility] MEDICAL OF IMAGING ASS O4703 FALSE LABOR 10-31-2015 [facility] BEFORE 37 MEM [facility] CMPLETE INC WEEKS GEST 3RD TRI O6003 10-31-2015 [facility] LABOR PHYSICIANS WITHOUT GROUP DELIVERY THIRD TRIMESTER Z3A34 34 WEEKS 10-31-2015 [facility] OF INC E35220 ABNORMAL 10-07-2015 [facility] GLUCOSE PHYSICIANS COMPLICATIN GROUP G Z3492 ENC 09-15-2015 [place] [facility] MEDICAL NORMAL IMAGING ASS UNS 2 TRIMESTER Z3A26 26 WEEKS 09-15-2015 [facility] MEDICAL OF IMAGING ASS Z113 ENCOUNTER 08-29-2015 [facility] INFECTIONS SEXL MODE TRANSMISSN Z3201 ENCOUNTER 08-29-2015 [facility] GROUP TEST RESULT POSITIVE Z3481 ENC 08-29-2015 [facility] OT NORMAL 1 TRIMESTER Medications Na ND Rx Da Fi Fi [...] 1 59 PH CE AR TA MA CA CY NO PH #5 91 7. 5- [...] 1 36 PH CE AR TA MA CA CY NO PH #5 EN 91 5- 32 5 IB 68 05 06 6. 3 00 [place] Ac UP 64 -0 -0 00 00 [...] ON E 15 0 MG /M L IB 68 04 05 20 5 00 [place] Ac UP 64 -2 -1 .0 00 L- ti RO 50 6- 9- 00 07 MA ve FE 53 20 20 48 RT N 15 17 17 46 80 4 17 PH 0 AR MG MA CY TA BL #5 ET 91 AM 00 04 05 20 10 00 [place] Ac OX 14 -2 -1 .0 00 L- ti IC 39 6- 9- 00 07 MA ve IL 95 20 20 48 RT LI 10 17 17 46 N 1 15 PH 87 AR 5 MA MG CY TA #5 BL 91 ET NA 65 02 03 60 30 00 [place] Ac AZ 16 -1 -1 .0 00 L- ti [...] LO 00 01 02 30 30 00 [place] Ac RA 78 -0 -0 .0 00 L- ti TA 15 5- 3- 00 08 MA ve DI 07 20 20 83 RT NE 70 17 17 75 1 82 PH 10 AR MA MG CY TA #5 BL 91 ET Encounters Encounter Start End Date Code Location Performer Type Date [facility] JENSEN - 7 7 [facility] JENSNE - 7 7 [facility] JENSEN - 7 7 [facility] JENSEN - 6 6 [facility]PAT[facility] JENSEN - 6 6 [facility] JENSEN - 6 6 [facility] JENSEN - 6 6 [facility] JENSEN - 6 6 [facility] JENSEN - 6 6 [facility] JENSEN - 6 6 [facility] - [facility]
--- OUTSIDE RECORDS SUMMARY | 2017-02-06 12:50 | External Medical Summary Rpt | CCD ---
Author Author , IAM VITALE Address Unknown Phone [email or web address] Care Team Providers Care Termite Exterminator Name Role Phone [facility] Unavailable Unavailable MEDICAL GROUP, [facility] Unavailable Unavailable ANESTHESIA, [facility] ANESTHESIA [facility] Unavailable Unavailable DUBILIER, [facility] Unavailable Unavailable [facility], [facility] Unavailable Unavailable INC, [facility] Unavailable Unavailable HOSPITAL P, [facility], Unavailable Unavailable [facility], [facility]available Unavailable [facility] Unavailable Unavailable [facility], [facility] Un[facility] Un[facility], Un[facility] Unavailable [facility], [facility] Unavailable Unavailable EQUIPME, [facility] Purpose Continuity of Care Document - 08-29-2015 through 2016 Problems Code Diagnosis DOS Provider Status J00 ACUTE 10-13-2016 [facility] NASOPHARYNG PHYSICIAN ITIS COMMON GROUP COLD K8010 CALCULUS GB 09-22-2016 [facility] W/CHRONIC MICHEAL & CHOLECYST DUBILIER W/O OBSTRUCTION K8050 CALCULUS BD 09-22-2016 [facility] W/O [place] CHOLANGITIS ANESTHESIA /CHOLECYST W/O OBST K8510 BILIARY 09-22-2016 [place] [facility] [place] PANCREATITI ANESTHESIA S W/O NECROSIS INFECT K8590 ACUTE 09-22-2016 [facility] PANCREATITI HEALTH S WO MEDICAL NECROSIS/IN GROUP FECTION UNSPEC K8020 CALCULUS GB 09-21-2016 [facility] CHOLECYSTIT ASSOCIATES IS W/O OBSTRUCTION R1013 EPIGASTRIC 09-21-2016 [facility] Z720 TOBACCO USE 09-21-2016 [facility] K8051 CALCULUS BD 09-20-2016 [facility] P OR CHOLECYST W/OBST K8070 CALCULUS GB 09-20-2016 [place] & BD W/O MEDICAL CHOLECYST IMAGING ASS W/O OBSTRUCTION K831 OBSTRUCTION 09-20-2016 [facility] OF [facility], DUCT [facility] R079 CHEST PAIN 09-20-2016 [facility] UNSPECIFIED MEDICAL IM[facility]ING ASS R109 UNSPECIFIED 09-20-2016 [facility] ABDOMINAL [facility]ICAL PAIN [facility] R748 ABNORMAL 09-20-2016 [facility] LEVELS OF MEDICAL OTHER SERUM IMAGING ASS ENZYMES R7989 OTHER SPEC 09-20-2016 [facility] ABNORMAL [facility]YS[facility]ANS, FINDINGS [facility] BLOOD CHEMISTRY R945 ABNORMAL 09-20-2016 [facility] RESULTS OF PHYSICIANS, LIVER [facility] FUNCTION STUDIES Z0189 ENCOUNTER 08-10-2016 [facility] SPECIFIED SPECIAL EXAMINATION S Z302 ENCOUNTER 08-10-2016 [facility] STERILIZATI GROUP ON Z3009 ENCOUNTER 08-08-2016 [facility] OT GENERAL PHYSICIANS GROUP COMPLEX CARE NURSE&ADV ICE CONTRACEPT Z9851 TUBAL 08-08-2016 [facility] LIGATION PHYSICIANS STATUS GROUP K029 DENTAL 07-02-2016 [facility] CARIES [facility]YSIC[facility]ANS, UNSPECIFIED [facility] Z88793 CELLULITIS 07-02-2016 [place] OF FACE MEDICAL IMAGING ASS Z3040 ENCOUNTER 06-28-2016 [facility] SURVEILLANC GROUP E CONTRACEPTI VES UNS R14206 ENCOUNTER 06-28-2016 [facility] REMOVAL PHYSICIANS INTRAUTERIN GROUP E CONTRACEPT DEVICE K0500 ACUTE 06-27-2016 [facility]INGIVITIS [facility] PLAQUE INC INDUCED R102 PELVIC AND 05-23-2016 [facility] PERINEAL PHYSICIANS PAIN GROUP Z7251 HIGH RISK 05-23-2016 [facility] HETEROSEXUA PHYSICIANS L BEHAVIOR GROUP R83273 ENCOUNTER 04-17-2016 [facility] INSERTION PHYSICIANS INTRAUTERIN GROUP E CONTRACEPT DEVC Z392 ENCOUNTER 01-11-2016 [facility] FOR ROUTINE LLC FOLLOW-UP Z391 ENCNTR FOR 12-22-2015 [facility] MEDICAL LACTATING EQUIPME MOTHER [id number] L & D COMP 12-04-2015 [facility] CORD AROUND [facility] NECK W/O INC COMPRS NA/UNS O80 ENCOUNTER 12-04-2015 [facility] FULL-TERM GROUP UNCOMPLICAT ED DELIVERY Z370 SINGLE LIVE 12-04-2015 [facility] Z3A39 39 WEEKS 12-04-2015 [facility] GESTATION [facility] OF INC [id number] OLIGOHYDRAM 11-29-2015 [facility] NIOS THIRD PHYSICIANS TRIMESTER GROUP NA/UNS F33919 DRUG USE 11-29-2015 [facility] COMPLICATIN PHYSICIANS G GROUP UNS TRIMESTER G71443 DRUG USE 11-23-2015 [facility] COMPLICATIN PHYSICIANS G GROUP THIRD TRIMESTER Z3480 ENC 11-23-2015 [facility] SUPERVISION PHYSICIANS OT NORMAL GROUP PREG UNS TRIMESTER A21062 OTHER SPEC 11-21-2015 [facility] RELATED INC COND 3RD TRIMESTER Z3A37 37 WEEKS 11-21-2015 [facility]STATION [facility] OF INC Z3493 ENC 11-15-2015 [place] [facility] MEDICAL NORMAL IMAGING ASS UNS 3 TRIMESTER Z3A36 36 WEEKS 11-15-2015 [facility] MEDICAL OF IMAGING ASS O4703 FALSE LABOR 10-31-2015 [facility] BEFORE 37 [facility] H[facility] CMPLETE INC WEEKS GEST 3RD TRI O6003 10-31-2015 [facility] LABOR PHYSICIANS WITHOUT GROUP DELIVERY THIRD TRIMESTER Z3A34 34 WEEKS 10-31-2015 [facility] OF INC B63363 ABNORMAL 10-07-2015 [facility] GLUCOSE PHYSICIANS COMPLICATIN GROUP G Z3492 ENC 09-15-2015 [facility] SUPER[facility] MEDICAL NORMAL IMAGING ASS UNS 2 TRIMESTER Z3A26 26 WEEKS 09-15-2015 [facility] MEDICAL OF IMAGING ASS Z113 ENCOUNTER 08-29-2015 [facility] SCREEN [facility] INFECTIONS SEXL MODE TRANSMISSN Z3201 ENCOUNTER 08-29-2015 [facility] GROUP TEST RESULT POSITIVE [...] 1 59 PH CE AR TA MA ND CY NO PH #5 91 7. 5- [...] 1 36 PH CE AR TA MA ND CY NO PH #5 EN 91 5- 32 5 IB 68 05 06 6. 3 00 IA Ac UP 64 -0 -0 00 00 [...] IB 68 04 05 20 5 00 IA Ac UP 64 -2 -1 .0 00 L- ti RO 50 6- 9- 00 07 MA ve FE 53 20 20 48 RT N 15 17 17 46 80 4 17 PH 0 AR MG MA CY TA BL #5 ET 91 AM 00 04 05 20 10 00 IA Ac OX 14 -2 -1 .0 00 L- ti IC 39 6- 9- 00 07 MA ve IL 95 20 20 48 RT LI 10 17 17 46 N 1 15 PH 87 AR 5 MA MG CY TA #5 BL 91 ET NA 65 02 03 60 30 00 IA Ac NE 16 -1 -1 .0 00 L- ti [...] LO 00 01 02 30 30 00 IA Ac RA 78 -0 -0 .0 00 L- ti TA 15 5- 3- 00 08 MA ve DI 07 20 20 83 RT NE 70 17 17 75 1 82 PH 10 AR MA MG CY TA #5 BL 91 ET Encounters Encounter Start End Date Code Location Performer Type Date [facility] - 7 7 [facility] - 7 7 [facility] - 7 7 [facility] - 6 6 [facility] - 6 6 [facility] - 6 6 [facility] - 6 6 [facility] - 6 6 [facility] - 6 6 [facility] JESNEN - 6 6 [facility] JENS[facility] - 6 6 [facility]
--- OUTSIDE RECORDS SUMMARY | 2017-02-06 12:51 | External Medical Summary Rpt ---
Author Author IAM Dacosta, [employer]AM [employer] Address Unknown Phone Unavailable Results EXTRA YELLOW URINE Observa Value Referen Units Interpr Notes Date tion ce etation Range XTRA GOLD SST Observa Value Referen Units Interpr Notes Date tion ce etation Range Acute Hepatitis Panel Observa Value Referen Units Interpr Notes Date tion ce etation Range Hepatit Negativ Negativ No No No Dec 12 is B e e informa informa informa 2017 virus tion in tion in tion in 11:56 surface source source source AM Ag data data data [Presen ce] in Serum by Immunoa ssay Hepatit Negativ Negativ No No No Dec 12 is B e e informa informa informa 2017 virus tion in tion in tion in 11:56 core source source source AM IgM Ab data data data [Units/ volume] in Serum by Immunoa ssay Hepatit Negativ Negativ No No No Dec 12 is A e e informa informa informa 2017 virus tion in tion in tion in 11:56 Ab source source source AM [Units/ data data data volume] in Serum by Radioim munoass ay (KRUNAL) Hepatit Negativ Negativ No No No Dec 12 is C e e informa informa informa 2017 virus tion in tion in tion in 11:56 Ab source source source AM [Units/ data data data volume] in Serum by Immunoa ssay Thyroid Stimulating Hormone Observa Value Referen Units Interpr Notes Date tion ce etation Range Thyrotr 1.860 0.270 - mcIU/mL No No Dec 12 opin 4.200 informa informa 2017 [Units/ tion in tion in 11:56 volume] source source AM in data data Serum or Plasma Gamma Glutamyl Transferase Observa Value Referen Units Interpr Notes Date tion ce etation Range Gamma 15 5 - 36 IU/L No No Dec 12 glutamy informa informa 2017 l tion in tion in 11:56 transfe source source AM rase data data [Enzyma tic activit y/volum e] in Serum or Plasma Magnesium Level Observa Value Referen Units Interpr Notes Date tion ce etation Range Magnesi 2.0 1.6 - mg/dL No No Dec 12 um 2.4 informa informa 2016 [Moles/ tion in tion in 11:56 volume] source source AM in data data Serum or Plasma Comprehensive Metabolic Panel Observa Value Referen Units Interpr Notes Date tion ce etation Range Sodium 139 136 - mmol/L No No Dec 12 [Moles/ 145 informa informa 2016 volume] tion in tion in 11:56 in source source AM Serum data data or Plasma Potassi 4.0 3.5 - mmol/L No No Dec 12 um 5.0 informa informa 2016 [Moles/ tion in tion in 11:56 volume] source source AM in data data Serum or Plasma Chlorid 103 98 - mmol/L No No Dec 12 e 107 informa informa 2016 [Moles/ tion in tion in 11:56 volume] source source AM in data data Serum or Plasma Carbon 21 22 - 29 mmol/L Low No Dec 12 dioxide informa 2017 , total tion in 11:56 source AM [Moles/ data volume] in Serum or Plasma Anion 15 7 - 16 mmol/L No No Dec 12 gap in informa informa 2017 Serum tion in tion in 11:56 or source source AM Plasma data data Calcium 9.2 8.6 - mg/dL No No Dec 12 10.2 informa informa 2016 [Moles/ tion in tion in 11:56 volume] source source AM in data data Serum or Plasma Glucose 85 74 - mg/dL No No Dec 12 100 informa informa 2016 [Mass/v tion in tion in 11:56 olume] source source AM in data data Serum or Plasma Urea 6 6 - 20 mg/dL No No Dec 12 nitroge informa informa 2016 n tion in tion in 11:56 [Mass/v source source AM olume] data data in Serum or Plasma Creatin 0.65 0.51 - mg/dL No No Dec 12 ine 1.30 informa informa 2016 [Mass/v tion in tion in 11:56 olume] source source AM in data data Serum or Plasma Albumin 4.6 3.5 - gm/dL No No Dec 12 5.2 informa informa 2017 [Mass/v tion in tion in 11:56 olume] source source AM in data data Serum or Plasma Protein 6.9 6.4 - gm/dL No No Dec 12 8.3 informa informa 2017 [Mass/v tion in tion in 11:56 olume] source source AM in data data Serum or Plasma Bilirub 0.5 0.1 - mg/dL No No Dec 12 in.tota 1.3 informa informa 2017 l tion in tion in 11:56 [Mass/v source source AM olume] data data in Serum or Plasma Alanine 10 <=41 IU/L No No Dec 12 informa informa 2017 aminotr tion in tion in 11:56 ansfera source source AM se data data [Enzyma tic activit y/volum e] in Serum or Plasma Asparta 13 <=40 IU/L No No Dec 12 te informa informa 2017 aminotr tion in tion in 11:56 ansfera source source AM se data data [Enzyma tic activit y/volum e] in Serum or Plasma Alkalin 42 35 - IU/L No No Dec 12 e 104 informa informa 2017 phospha tion in tion in 11:56 tase source source AM [Enzyma data data tic activit y/volum e] in Serum or Plasma Glomeru 139 No mL/min/ No No Dec 12 lar informa 1.73_m2 informa informa 2017 filtrat tion in tion in tion in 11:56 ion source source source AM rate/1. data data data 73 sq M.predi cted by Creatin ine-bas ed formula (CKD-EP I) Glomeru 120 No mL/min/ No GFR Afr Dec 11 lar informa 1.73_m2 informa Am and 2017 filtrat tion in tion in GFR 11:56 ion source source Non Afr AM rate/1. data data Am 73 sq calcula M.predi chao cted by using CKD-EPI Creatin ine-bas equatio ed n.GFR formula Categor y (CKD-EP GFR(mL/ I) min/1.7 3 m?) Kidney Functio n _G1 >=90 Normal or highG2 60-89 Mildly decreas edG3a 45-59 Mildly to moderat triston decreas edG3b 30-44 Moderat triston to severel y decreas edG4 15-29 Severel y decreas edG5 <15 Kidney Failure CBC Observa Value Referen Units Interpr Notes Date tion ce etation Range Leukocy 7.5 4.0 - x10(3)/ No No Dec 12 omayra 11.0 mcL informa informa 2016 [#/volu tion in tion in 11:56 me] in source source AM Blood data data by Automat ed count Erythro 4.96 3.80 - x10(6)/ No No Dec 12 cytes 5.10 mcL informa informa 2016 [#/volu tion in tion in 11:56 me] in source source AM Blood data data by Automat ed count Hemoglo 15.7 12.0 - gm/dL High No Dec 12 bin 15.6 informa 2016 [Mass/v tion in 11:56 olume] source AM in data Blood Hematoc 46.8 35.7 - % High No Dec 12 rit 45.9 informa 2016 [Volume tion in 11:56 source AM Fractio data n] of Blood by Automat ed count Erythro 94.2 82.5 - fL No No Dec 12 cyte 99.8 informa informa 2017 mean tion in tion in 11:56 corpus source source AM ular data data volume [Entiti c volume] by Automat ed count Erythro 31.6 27.0 - pg No No Dec 12 cyte 34.3 informa informa 2017 mean tion in tion in 11:56 corpusc source source AM ular data data hemoglo bin [Entiti c mass] by Automat ed count Erythro 33.6 32.1 - gm/dL No No Dec 12 cyte 35.3 informa informa 2017 mean tion in tion in 11:56 corpusc source source AM ular data data hemoglo bin concent ration [Mass/v olume] by Automat ed count Erythro 12.5 11.5 - % No No Dec 12 cyte 15.0 informa informa 2017 distrib tion in tion in 11:56 ution source source AM width data data [Ratio] by Automat ed count Platele 194 144 - x10(3)/ No No Dec 12 ts 423 mcL informa informa 2016 [#/volu tion in tion in 11:56 me] in source source AM Blood data data by Automat ed count Platele 10.8 6.8 - fL No No Dec 12 t mean 10.8 informa informa 2017 volume tion in tion in 11:56 [Entiti source source AM c data data volume] in Blood by Automat ed count Drugs identified in Urine by Screen method Observa Value Referen Units Interpr Notes Date tion ce etation Range Positive urine drug screen samples are stored for 7 days. Contact the Lab if confirmation of positives is needed. Ampheta NEGATIV <1000 ng/mL No No Sep 20 mine E informa informa 2016 [Presen tion in tion in 5:00 PM ce] in source source Urine data data by Screen method Barbitura <200 ng/mL No No Sep 20 omayra informati informati 2016 5:00 [Mass/vol on in on in PM ume] in source source Urine by data data Screen method Benzodiaz 200 ng/mL ng/mL No No Sep 20 epines informati informati 2016 5:00 [Mass/vol on in on in PM ume] in source source Serum or data data Plasma by Screen method Cocaine <300 ng/g No No Sep 20 [Mass/vol informati informati 2016 5:00 ume] in on in on in PM Unspecifi source source ed data data specimen Methadone <300 ng/mL No No Sep 20 informati informati 2016 5:00 [Mass/vol on in on in PM ume] in source source Unspecifi data data ed specimen Opiates <300 ng/mL No No Sep 20 [Mass/vol informati informati 2016 5:00 ume] in on in on in PM Unspecifi source source ed data data specimen Phencycli <25 ng/mL No No Sep 20 dine informati informati 2016 5:00 [Mass/vol on in on in PM ume] in source source Unspecifi data data ed specimen 11-Hydr NEGATIV <50 ng/mL No No Sep 20 oxy E informa informa 2017 delta-9 tion in tion in 5:00 PM source source tetrahy data data drocann abinol [Presen ce] in Unspeci fied specime n Choriogonadotropin.beta subunit [Units] in 24 hour Urine Observa Value Referen Units Interpr Notes Date tion ce etation Range Choriogon NEG No No No Sep 20 adotropin informati informati informati 2016 5:00 .beta on in on in on in PM subunit source source source [Units] data data data in 24 hour Urine Natriutietic peptide B [Mass/volume] in Serum or Plasma Observa Value Referen Units Interpr Notes Date tion ce etation Range Natriutie 0 - 100 pg/mL Normal No Sep 20 tic informati 2016 4:30 peptide B on in PM source [Mass/vol data ume] in Serum or Plasma Magnesium [Moles/volume] in Unspecified specimen Observa Value Referen Units Interpr Notes Date tion ce etation Range Magnesium 1.4 - 2.2 mg/dL Normal No Sep 20 inform2016 4:30 [Moles/vo on in PM lume] in source Unspecifi data ed specimen CBC W Auto Differential panel in Blood Observa Value Referen Units Interpr Notes Date tion ce etation Range Basophils 0 - 0.2 K/MM3 Normal No Sep 202016 4:30 [#/volume on in PM ] in source Blood by data Automated count Basophils 0.1 - 2.0 % Normal No Sep 20 informati 2016 4:30 leukocyte on in PM s in source Blood by data Automated count Eosinophi 0.0 - 0.4 K/mm3 Normal No Sep 20 ls informati 2016 4:30 [#/volume on in PM ] in source Blood by data Automated count Eosinophi 0.1 - % Normal No Sep 20 ls 12.0 informati 2016 4:30 leukocyte on in PM s in source Blood by data Automated count Granulocy 1.8 - 7.8 K/mm3 High No Sep 20 omayra informati 2016 4:30 [#/volume on in PM ] in source Blood by data Automated count Granulocy 37.0 - % Normal No Sep 20 omayra 80.0 informati 2016 4:30 leukocyte on in PM s in source Blood by data Automated count Hematocri 37.0 - % Normal No Sep 20 t [Volume 47.0 informati 2016 4:30 on in PM Fraction] source of Blood data Hemoglobi 12.2 - g/dL Normal No Sep 20 n 16.2 informati 2017 4:30 [Mass/vol on in PM ume] in source Blood data Lymphocyt 0.7 - 4.5 K/mm3 Normal No Sep 20 es informati 2017 4:30 [#/volume on in PM ] in source Unspecifi data ed specimen by Automated count Lymphocyt 10 - 50.0 % Normal No Sep 20 es informati 2017 4:30 [#/volume on in PM ] in source Unspecifi data ed specimen by Automated count Erythrocy 27 - 31.2 pg High No Sep 20 te mean informati 2016 4:30 corpuscul on in PM ar source hemoglobi data n [Entitic mass] Erythrocy 31.8 - g/dl Normal No Sep 20 te mean 35.4 informati 2016 4:30 corpuscul on in PM ar source hemoglobi data n concentra tion [Mass/vol ume] by Automated count Erythrocy 82.2 - fl Normal No Sep 20 te mean 97.8 informati 2017 4:30 corpuscul on in PM ar volume source [Entitic data volume] by Automated count Monocytes 0.1 - 1.0 K/mm3 Normal No Sep 20 informati 2017 4:30 [#/volume on in PM ] in source Blood by data Automated count Monocytes 1.7 - 9.3 % Normal No Sep 20 /100 informati 2017 4:30 leukocyte on in PM s in source Blood by data Automated count Platelet 7.4 - fl Normal No Sep 20 mean 10.4 informati 2017 4:30 volume on in PM [Entitic source volume] data in Blood by Automated count Platelets 142 - 424 K/mm3 Normal No Sep 20 informati 2017 4:30 [#/volume on in PM ] in source Blood data Erythrocy 4.2 - 5.4 M/mm3 Normal No Sep 20 omayra informati 2017 4:30 [#/volume on in PM ] in source Amniotic data fluid Erythrocy 11.5 - % Normal No Sep 20 te 17.5 informati 2016 4:30 distribut on in PM ion width source [Entitic data volume] by Automated count Leukocyte 4.8 - K/MM3 High No Sep 20 s 10.8 informati 2016 4:30 [#/volume on in PM ] in source Blood data Basic metabolic panel in Blood Observa Value Referen Units Interpr Notes Date tion ce etation Range Urea 7 - 18 mg/dL Normal No Aug 9 nitrogen informati 2016 6:35 [Mass/vol on in AM ume] in source Serum or data Plasma Calcium 8.5 - mg/dL Normal No Aug 10 [Mass/vol 10.1 informati 2016 6:35 ume] in on in AM Serum or source Plasma data Chloride 98 - 107 mmoL/L Normal No Aug 10 [Moles/vo informati 2016 6:35 lume] in on in AM Serum or source Plasma data Carbon 21.0 - mmoL/L Normal No Aug 9 dioxide, 32.0 informati 2016 6:35 total on in AM [Moles/vo source lume] in data Serum or Plasma Creatinin 0.55 - mg/dL Normal No Aug 10 e 1.02 informati 2016 6:35 [Mass/vol on in AM ume] in source Serum or data Plasma Estimated 59- ML/MIN No REFERENCE Aug 10 informati RANGE: 2017 6:35 glomerula on in >60 AM r source ML/MIN/1. filtratio data 73 SQUARE n rate METERSIf (GF this patient is -A merican, then multiply theresult by 1.210. Glucose 74 - 106 mg/dL Normal No Aug 10 [Mass/vol informati 2016 6:35 ume] in on in AM Serum or source Plasma data Potassium 3.5 - 5.1 mmoL/L Normal No Aug 10 informati 2016 6:35 [Moles/vo on in AM lume] in source Serum or data Plasma Sodium 136 - 145 mmoL/L Normal No Aug 9 [Moles/vo informati 2017 6:35 lume] in on in AM Serum or source Plasma data CBC W Auto Differential panel in Blood Observa Value Referen Units Interpr Notes Date tion ce etation Range Basophils 0 - 0.2 K/MM3 Normal No Aug 9 informati 2016 6:35 [#/volume on in AM ] in source Blood by data Automated count Basophils 0.1 - 2.0 % Normal No Aug 10 /100 informati 2017 6:35 leukocyte on in AM s in source Blood by data Automated count Eosinophi 0.0 - 0.4 K/mm3 High No Aug 9 ls informati 2016 6:35 [#/volume on in AM ] in source Blood by data Automated count Eosinophi 0.1 - % Normal No Aug 9 ls/100 12.0 informati 2017 6:35 leukocyte on in AM s in source Blood by data Automated count Granulocy 1.8 - 7.8 K/mm3 Normal No Aug 9 omayra informati 2016 6:35 [#/volume on in AM ] in source Blood by data Automated count Granulocy 37.0 - % Normal No Aug 9 omayra/100 80.0 informati 2017 6:35 leukocyte on in AM s in source Blood by data Automated count Hematocri 37.0 - % Normal No Aug 10 t [Volume 47.0 informati 2016 6:35 on in AM Fraction] source of Blood data Hemoglobi 12.2 - g/dL Normal No Aug 9 n 16.2 informati 2017 6:35 [Mass/vol on in AM ume] in source Blood data Lymphocyt 0.7 - 4.5 K/mm3 Normal No Aug 10 es informati 2017 6:35 [#/volume on in AM ] in source Unspecifi data ed specimen by Automated count Lymphocyt 10 - 50.0 % Normal No Aug 10 es informati 2017 6:35 [#/volume on in AM ] in source Unspecifi data ed specimen by Automated count Erythrocy 27 - 31.2 pg High No Aug 9 te mean informati 2017 6:35 corpuscul on in AM ar source hemoglobi data n [Entitic mass] Erythrocy 31.8 - g/dl Normal No Aug 10 te mean 35.4 informati 2017 6:35 corpuscul on in AM ar source hemoglobi data n concentra tion [Mass/vol ume] by Automated count Erythrocy 82.2 - fl Normal No Aug 9 te mean 97.8 informati 2017 6:35 corpuscul on in AM ar volume source [Entitic data volume] by Automated count Monocytes 0.1 - 1.0 K/mm3 Normal No Aug 9 informati 2017 6:35 [#/volume on in AM ] in source Blood by data Automated count Monocytes 1.7 - 9.3 % Normal No Trevor 9 /100 informati 2017 6:35 leukocyte on in AM s in source Blood by data Automated count Platelet 7.4 - fl Normal No Aug 9 mean 10.4 informati 2017 6:35 volume on in AM [Entitic source volume] data in Blood by Automated count Platelets 142 - 424 K/mm3 Normal No Aug 9 informati 2017 6:35 [#/volume on in AM ] in source Blood data Erythrocy 4.2 - 5.4 M/mm3 Normal No Aug 9 omayra informati 2017 6:35 [#/volume on in AM ] in source Amniotic data fluid Erythrocy 11.5 - % Normal No Aug 9 te 17.5 informati 2017 6:35 distribut on in AM ion width source [Entitic data volume] by Automated count Leukocyte 4.8 - K/MM3 Normal No Aug 9 s 10.8 informati 2017 6:35 [#/volume on in AM ] in source Blood data Choriogonadotropin.beta subunit [Units] in 24 hour Urine Observa Value Referen Units Interpr Notes Date tion ce etation Range Choriogon NEG No No No Aug 9 adotropin informati informati informati 2016 6:35 .beta on in on in on in AM subunit source source source [Units] data data data in [address] HEAD WO CONTRAST Observa Value Referen Units Interpr Notes Date tion ce etation Range TEXT CT HEAD No No No No Dec 2 DIAGNOS WO informa informa informa informa 2011 IS CONTRAS tion in tion in tion in tion in 9:15 PM BATTERY T Oct source source source source 02, data data data data 2011 09:16:1 8 PMHISTO RY: 784.0-H eadache -ICD-9- CMScans were perform ed through out the brain without intrave nous contras t. Noprevi ous exams atthis hospita l.No mass, hemorrh age or acute infarct is seen. The ventric les are normal insize and positio n.No area of abnorma l brain attenua tion is seen. No extra-a xial collect ionor abnorma l masseff ect is seen.Th ere is mild mucosal thicken ing in the ethmoid sinus.I MPRESSI ON: No abnorma lity of the brain identif ied. Mild mucosal thicken ing in the ethmoid sinus. Code jot stat
--- OUTSIDE RECORDS SUMMARY | 2017-02-06 12:51 | External Medical Summary Rpt ---
Author Author [employer], [employer] Address Unknown Phone Unavailable [...]
--- NOTE | 2017-02-06 13:15 | Urgent Treatment Center Report ---
History of Present Issue Date/Time Seen by Provider 02/06/17 1315 Visit Reason Pt arrived:Walked Presenting Problem:PT C/O OF SORE THROAT, HEAD CONGESTION, AND EAR PAIN Location if Accident: Onset of symptoms date/time:01/05/1706/18/899 or onset unknown for: Have you (or family members/close friends) recently traveled outside the [place]? N If Yes, where/when: Have you had exposure to infectious disease within the past month? TB? Other? Specify: c/o sore throat, head congestion, and pb ear pain with rt>lt. Started yesterday. Denies fever, aches. Hasn't taken or tried anything. No known sick contacts. Source patient Exam Limitations no limitations ALLERGIES Coded Allergies: No Known Allergies (09/20/16) Home Medications Active Scripts Clindamycin Hcl (Clindamycin 300MG) 300 MG PO QID #40 CAP Prov: 07/02/16 Amoxicillin/Potassium Clav (Augmentin 875-125 Tablet) 1 EACH PO BID #20 TAB Prov: 07/02/16 AMOXICILLIN (Amoxicillin 875MG Tab) 875 MG PO BID #20 TAB Prov: 06/27/16 Ibuprofen (Ibuprofen 800MG) 800 MG PO Q6HP PRN dental pain #20 TAB Prov: 06/27/16 History Medical History General Angina: No UT: No Hypertension? No Hyperlipidemia? No CHF? No COPD? No Asthma? No Hernia? No CVA? No Seizures? No Diabetes? No UTI? No Stones? No GB Disease: Yes Nephritic Syndrome? No Asplenia? No Hepatitis? No Sickle Cell Disease? No Cataracts? No Glaucoma? No MRSA? No TB? No Cancer? No Additional hx: N Immunization HX DT/Tetanus 5-10 Years Ago Flu Refused Pneumonia Never Had Surgical Hx Previous Surgery?Y TONSILS TUBAL Family History Family HX Diabetes No CAD No Hypertension No Hyperlipidemia No Cancer Yes TB No Social History Smoking Hx Smoker: Current Every Day Smoker Tobacco: Yes Type Cigarettes Packs/day 1 1/2 - 2 Packs Alcohol Alcohol: No Review of Systems All Other Systems Reviewed and Negative Constitutional see HPI, denies malaise Eyes denies drainage ENT see HPI, nose discharge. denies: ear discharge, throat swelling, other (change hearing). Respiratory denies cough Gastrointestinal denies no symptoms reported Musculoskeletal denies joint pain Skin denies rash Psychiatric/Neurological denies headache Physical Exam Vital Signs Vital Signs Date Time Temp Pulse Resp B/P Pulse O2 O2 Flow FiO2 Ox Delivery Rate 02/06 1248 98.1 97 20 137/79 98 General Appearance normal appearance, no apparent distress Eye Exam - bilateral eye normal exam Ear, Nose, Throat pb EACs unremarkable, right TM pearly hartmann, intact, bulging, clear fluid bubbles present, left TM pearly red, intact, bulging Neck non-tender, supple Respiratory Status No: respiratory distress, productive cough, non productive cough. Lung Sounds bilateral: lungs clear. Cardiovascular regular rate/rhythm, no peripheral edema, no murmur Neurologic alert Skin normal color, warm/dry Lymphatic no adenopathy Medical Decision Making LABS/Meds/Orders Pt receiving controlled substance in ED? No Results/Orders Laboratory Tests 02/06/17 1253: Group A Strep Screen NOT DETECTED Orders Procedure Date/time Status [facility] STREP SCREEN 02/06 1253 Complete Departure Departure Time of Disposition 1326 Disposition DC Home or Self Care(routine) Clinical Impression Primary Impression: Left otitis media Qualifiers: Otitis media type: suppurative Chronicity: acute Recurrence: not specified as recurrent Spontaneous tympanic membrane rupture: without spontaneous rupture Qualified Code: H66.002 - Acute suppurative otitis media without spontaneous rupture of ear drum, left ear Secondary Impressions: Right serous otitis media Qualifiers: Chronicity: acute Recurrence: not specified as recurrent Qualified Code: H65.01 - Acute serous otitis media, right ear Condition STABLE Referrals NO REFERRAL Immediately for new or worsening symptoms, no noticeable improvement in 48-72 hours AND in 10-14 days to ensure ears are back to baseline. Patient Instructions DI for Otitis Media (Middle Ear Infection)-Child Additional Instructions * Start antibiotic SILVANO and be sure to take as ordered for the FULL length of time although you should start to feel better in 24-48 hours. * Monitor Temp. Tylenol every 4 hours as needed no more then 5 times a day or 4000mg in 24 hours and/or ibuprofen every 6 hours as needed no more then 3200mg in 24 hours (as long as your primary care doctor has told you that it is ok to take both) for fever/aches/pain. ER if fever no less than 101 despite Tylenol and ibuprofen * Encourage fluids, water, Gatorade, PowerAde, pedialyte if /toddler/child * warm compress often helps when placed over ear * sleep elevated * Flonase 2 sprays each nostril daily Discharge Counseling Counseled pt/family regarding diagnosis, test results, medications/RX, home care, follow up needs Prescriptions Current Visit Scripts AMOXICILLIN (Amoxicillin 875MG Tab) 875 MG PO BID #20 TAB Fluticasone Propionate (Flonase 50 Mcg Nasal [place]) 2 SPRAY NA DAILY #1 BOT at 1339
[2017-02-06] MEDS ORDERED: FLONASE 50 MCG16 GM (13:30)
[2017-02-06] MEDS ORDERED: AMOXICILLIN875 MG PO (13:30)
[2017-02-06 13:41] VITALS: BP 137/79
== END 2017-02-06 13:42 | disposition home or self-care (01) ==
LOC: UTC 12:41
DX: H66.002 Acute suppurative otitis media without spontaneous rupture of ear drum, left ear (principal); H65.01 Acute serous otitis media, right ear